=== PATIENT | female | born 1990 | race Caucasian/White ===

== ENCOUNTER → 2017-06-13 16:48 | Emergency (ER) | payer SELFPAY ==
[~2017-06-13 16:48] MED LIST: PPD test dose* 5 TU/0.1 ML TEST (*USE PPD ORDER SET*) ONE
== END | disposition home or self-care (01) ==
LOC: OHCORT 16:48
DX: Z11.1 Encounter for screening for respiratory tuberculosis (principal)

== ENCOUNTER 2017-06-25 18:36 | Emergency (ER) | payer SELFPAY ==
[2017-06-25 18:57] VITALS: BP 118/68
--- NOTE | 2017-06-25 19:22 | UC ---
UC General HPI - HPI Summary HPI Summary: pt is c/o sneezing, sore throat, cough and bodyaches as well as "ears are burning". she admits to fever. onset 1 day ago - History of Current Complaint Hx Obtained From: Patient Hx Last Menstrual Period: 06/17/17 Onset/Duration: Sudden Onset Timing: Constant Pain Intensity: 5 Aggravating: nothing Alleviating: nothing Associated Signs & Symptoms: Positive: Cough, Fever <Keiry Alarcon - Last Filed: 06/25/17 19:22> <Paty Villanueva - Last Filed: 06/25/17 19:30> - History of Current Complaint Chief Complaint: UCGeneralIllness Stated Complaint: FEVER/COUGH/SORE THROAT Time Seen by Provider: 06/25/17 18:57 - Allergy/Home Medications Allergies/Adverse Reactions: Allergies Allergy/AdvReac Type Severity Reaction Status Date / Time bee venom protein (honey bee) Allergy Anaphylatic Verified 06/25/17 18:54 Shock Home Medications: Home Medications Pheniramine/P-Eph/Acetaminophn [Theraflu Flu & Sore Throa] 1 precious PO ONCE [History Confirmed 06/25/17] PMH/Surg Hx/FS Hx/Imm Hx Previously Healthy: Yes - Surgical History Surgical History: Yes Surgery Procedure, Year, and Place: X 1 - Social History Occupation: Student Lives: With Family Alcohol Use: Rare Substance Use Type: None Smoking Status (MU): Light Every Day Tobacco Smoker Type: Cigarettes Amount Used/How Often: 5 cigs per day Length of Time of Smoking/Using Tobacco: 6 YRS - Immunization History Vaccination Up to Date: Yes <Keiry Alarcon - Last Filed: 06/25/17 19:22> Review of Systems Constitutional: Fever Skin: Negative Eyes: Negative ENT: Sore Throat Respiratory: Cough Cardiovascular: Negative Gastrointestinal: Negative Genitourinary: Negative Motor: Negative Neurovascular: Negative Musculoskeletal: Myalgia Neurological: Negative Psychological: Negative Is Patient Immunocompromised?: No All Other Systems Reviewed And Are Negative: Yes <Keiry Alarcon - Last Filed: 06/25/17 19:22> Physical Exam Triage Information Reviewed: Yes Appearance: Well-Appearing Vital Signs: Initial Vital Signs Temp 97.9 F 06/25/17 18:53 Pulse 111 06/25/17 18:53 Resp 16 06/25/17 18:53 BP 118/68 06/25/17 18:53 Pulse Ox 96 06/25/17 18:53 Vital Signs Reviewed: Yes Eyes: Positive: Conjunctiva Clear ENT: Positive: Pharynx normal, TMs normal. Negative: Nasal congestion, Nasal drainage Neck: Positive: Supple, Nontender, No Lymphadenopathy. Negative: Nuchal Rigidity Respiratory: Positive: Lungs clear, Normal breath sounds Cardiovascular: Positive: RRR, No Murmur. Negative: Tachycardia Abdomen Description: Positive: Nontender, No Organomegaly, Soft Bowel Sounds: Positive: Present Musculoskeletal: Positive: ROM Intact Neurological: Positive: Alert Psychological: Positive: Age Appropriate Behavior Skin Exam: Normal <Keiry Alarcon - Last Filed: 06/25/17 19:22> Vital Signs: Initial Vital Signs Temp 97.9 F 06/25/17 18:53 Pulse 111 06/25/17 18:53 Resp 16 06/25/17 18:53 BP 118/68 06/25/17 18:53 Pulse Ox 96 06/25/17 18:53 <Paty Villanueva - Last Filed: 06/25/17 19:30> Diagnostics - Laboratory Diagnostic Studies Completed/Ordered: Influenza B + <Keiry Alarcon - Last Filed: 06/25/17 19:22> Course/Dx - Course Course Of Treatment: tamiflu offered, pt declined. tx supportive. pt has seen dr love in past thus refer there. - Differential Dx - Multi-Symptom Provider Diagnoses: Influenza B <Keiry Alarcon - Last Filed: 06/25/17 19:22> Discharge <Keiry Alarcon - Last Filed: 06/25/17 19:22> <Paty Villanueva - Last Filed: 06/25/17 19:30> - Discharge Plan Condition: Stable Disposition: HOME Patient Education Materials: Influenza (ED) Forms: *School Release Referrals: Cyn Love MD [Medical Doctor] - 7 Days Attestation Statement User Type: Provider - I was available for consult. This patient was seen by the advanced practice provider. The patient was not presented to, seen by, or examined by me.-Ljj <Paty Villanueva - Last Filed: 06/25/17 19:30>
== END 2017-06-25 19:27 | disposition home or self-care (01) ==
LOC: UCCORT 18:36
DX: J10.1 Influenza due to other identified influenza virus with other respiratory manifestations (principal); F17.210 Nicotine dependence, cigarettes, uncomplicated
CPT/HCPCS: 87502; 99211; G0463

== ENCOUNTER 2017-09-26 17:22 | Emergency (ER) | payer MEDICAID ==
[2017-09-26 17:58] VITALS: BP 124/82
[2017-09-26] MEDS ORDERED: Ondansetron ODT TAB* 4 MG PO ONE (18:24)
[2017-09-26] MEDS ORDERED: Acetaminophen TAB* 325 MG PO ONE (18:24)
--- NOTE | 2017-09-26 18:24 | UC ---
General HPI - HPI Summary HPI Summary: history of acid reflux, uses TUMS on occasion. For 3 days, has had pain after eating with about 5 episodes of emesis over the past 3 days, last was after lunch today (andrew at [employer]). Appetite overall normal, has thought that she might be running a fever, but did not take her own temp. 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 Last stool was normal, 2 days ago, says voiding normally. Smokes, minimal alcohol, stopped caffeine several months ago. 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 Hx Last Menstrual Period: 09/09/17 Onset/Duration: Gradual Onset, Lasting Days - 3 Timing: Intermittent Episodes Lasting: - nausea post eating, lasts several hours. Onset Severity: Mild Current Severity: Moderate Pain Intensity: 5 Associated Signs & Symptoms: Positive: Abdominal Pain - diffuse - Allergy/Home Medications Allergies/Adverse Reactions: Allergies Allergy/AdvReac Type Severity Reaction Status Date / Time bee venom protein (honey bee) Allergy Anaphylatic Verified 06/25/17 18:54 Shock PMH/Surg Hx/FS Hx/Imm Hx Previously Healthy: Yes - recent fatigue, chronic back pain. - Surgical History Surgical History: Yes Surgery Procedure, Year, and Place: X 1 - Family History Known Family History: Positive: Other - mother had surgery for a type of ulcer. - Social History Occupation: Student Lives: With Family Alcohol Use: Occasionally Substance Use Type: None Smoking Status (MU): Light Every Day Tobacco Smoker Type: Cigarettes Amount Used/How Often: 5 cigs per day Length of Time of Smoking/Using Tobacco: since age 15 Have You Smoked in the Last Year: Yes - Immunization History Vaccination Up to Date: Yes Review of Systems Constitutional: Fatigue - went to ER several weeks ago with fatigue, sometimes feels foggy in her brain Gastrointestinal: Abdominal Pain, Vomiting Genitourinary: Other - has monthly cycles with implanon in place, bleeds for about a week. Musculoskeletal: Arthralgia - chronic back pain Is Patient Immunocompromised?: No All Other Systems Reviewed And Are Negative: Yes Physical Exam Triage Information Reviewed: Yes Appearance: Ill-Appearing - looks mildly unwell., Pain Distress - mild Vital Signs: Initial Vital Signs Temp 98.3 F 09/26/17 17:44 Pulse 95 09/26/17 17:44 Resp 16 09/26/17 17:44 BP 124/82 09/26/17 17:44 Pulse Ox 99 09/26/17 17:44 Eyes: Positive: Conjunctiva Clear ENT: Positive: Pharynx normal Neck: Positive: Supple, Nontender, No Lymphadenopathy Respiratory: Positive: Lungs clear, Normal breath sounds Cardiovascular: Positive: RRR, No Murmur Abdominal Exam: Other Abdomen Description: Positive: No Organomegaly, Soft. Negative: Distended, Guarding, Hernia @, Hepatomegaly Bowel Sounds: Positive: Present Musculoskeletal Exam: Normal Neurological: Positive: Alert, Muscle Tone Normal Skin Exam: Normal Course/Dx - Course Course Of Treatment: omeprazole for reflux; ondansetron for nausea x 1 dose. - Differential Dx - Multi-Symptom Provider Diagnoses: gastritis, likely viral, reflux. Discharge - Sign-Out/Discharge Documenting (check all that apply): Discharge/Admit/Transfer - Discharge Plan Condition: Stable Disposition: HOME Prescriptions: Omeprazole CAP* [Prilosec CAP* 20 MG] 20 mg PO DAILY #14 cap. Patient Education Materials: Gastritis (ED) Referrals: Carolyne Isabel PA [Primary Care Provider] - Additional Instructions: You have been given zofran (ondansetron) for nausea. Clear fluids for the remainder of the day, and take your first omeprazole tonight. If you feel improved in the morning, take omeprazole 20 to 30 minutes before breakfast. I suggest 2 to 3 days of easily digestible foods such as oatmeal, cooked vegetables, poached chicken, toast etc. Follow up with your primary care physician regarding fatigue. - Billing Disposition and Condition Condition: STABLE Disposition: Home
== END 2017-09-26 18:58 | disposition home or self-care (01) ==
LOC: UCCORT 17:22
DX: K29.70 Gastritis, unspecified, without bleeding (principal); K21.9 Gastro-esophageal reflux disease without esophagitis; F17.210 Nicotine dependence, cigarettes, uncomplicated
CPT/HCPCS: 99212; A9270-GY; G0463

== ENCOUNTER 2018-01-08 11:02 | Emergency (ER) | payer MEDICAID, OTHER ==
[2018-01-08 11:35] VITALS: BP 122/74
--- NOTE | 2018-01-08 12:00 | UC ---
General HPI - HPI Summary HPI Summary: Patient states "I might have an ear infection". She states that she thinks might have fluid in her ears and she notes some pain in both ears thus wants to ensure not an infection. With that she admits to having sore throat and headache. She is currently on an anti-inflammatory and amoxicillin for recent dental extractions. She has no associated fever. - History of Current Complaint Chief Complaint: UCEar Stated Complaint: EARS,SORE THROAT Time Seen by Provider: 01/08/18 11:29 Hx Obtained From: Patient Hx Last Menstrual Period: ~12/31/17 (Implanon) Onset/Duration: Gradual Onset Timing: Constant Pain Intensity: 8 Aggravating: Nothing Alleviating: nothing Associated Signs & Symptoms: Positive: Headache - Allergy/Home Medications Allergies/Adverse Reactions: Allergies Allergy/AdvReac Type Severity Reaction Status Date / Time bee venom protein (honey bee) Allergy Anaphylatic Verified 01/08/18 11:30 Shock Home Medications: Home Medications Amoxicillin PO (*) [-Amoxicillin 250 MG CAP*] 250 mg PO DAILY 01/08/18 [History Confirmed 01/08/18] Etonogestrel [Nexplanon] 68 mg IMPLANT ONCE 01/08/18 [History Confirmed 01/08/18 ] Lactobacillus Acidophilus [Freeze Dried Acidophilus] 1 cap PO TID 01/08/18 [ History Confirmed 01/08/18] Naproxen Sodium [Naproxen 220 mg] 220 mg PO Q12H 01/08/18 [History Confirmed ] PMH/Surg Hx/FS Hx/Imm Hx - Additional Past Medical History Additional PMH: Otitis media - Surgical History Surgical History: Yes Surgery Procedure, Year, and Place: , 2010, [place] - Family History Known Family History: Positive: Other - mother had surgery for a type of ulcer. - Social History Occupation: Unemployed Lives: With Family Alcohol Use: Occasionally Substance Use Type: None Smoking Status (MU): Light Every Day Tobacco Smoker Type: Cigarettes Amount Used/How Often: 1/4 PPD Length of Time of Smoking/Using Tobacco: Since Age 15 Have You Smoked in the Last Year: Yes - Immunization History Vaccination Up to Date: Yes Review of Systems Constitutional: Negative Skin: Negative Eyes: Negative ENT: Sore Throat, Ear Ache Respiratory: Negative Cardiovascular: Negative Gastrointestinal: Negative Genitourinary: Negative Motor: Negative Neurovascular: Negative Musculoskeletal: Negative Neurological: Headache Psychological: Negative Is Patient Immunocompromised?: No All Other Systems Reviewed And Are Negative: Yes Physical Exam Triage Information Reviewed: Yes Appearance: Well-Appearing Vital Signs: Initial Vital Signs Temp 97.8 F 01/08/18 11:29 Pulse 88 01/08/18 11:29 Resp 22 01/08/18 11:29 BP 122/74 01/08/18 11:29 Pulse Ox 99 01/08/18 11:29 Vital Signs Reviewed: Yes Eyes: Positive: Conjunctiva Clear ENT: Positive: Pharynx normal, TMs normal - Canals are clear. No pre-or postauricular adenopathy. No mastoid tenderness., Uvula midline. Negative: Nasal congestion, Nasal drainage Neck: Positive: Supple, No Lymphadenopathy Respiratory: Positive: Lungs clear, Normal breath sounds Cardiovascular: Positive: RRR, No Murmur Abdomen Description: Positive: Nontender, No Organomegaly, Soft Bowel Sounds: Positive: Present Musculoskeletal: Positive: ROM Intact Neurological: Positive: Alert Psychological: Positive: Age Appropriate Behavior Skin Exam: Normal Course/Dx - Course Course Of Treatment: No concern for otitis media, otitis externa or mastoiditis. No concern for peritonsillar abscess. No rapid strep screen done because patient is already on amoxicillin which would cover strep throat. Going to treat her for eustachian tube dysfunction with a nasal steroid and an oral decongestant. Close follow-up advised for recheck. Patient agrees to complete her antibiotic as direct by the dentist - Differential Dx - Multi-Symptom Provider Diagnoses: Eustachian tube dysfunction. Sore throat. Discharge - Sign-Out/Discharge Documenting (check all that apply): Patient Departure All imaging exams completed and their final reports reviewed: No Studies - Discharge Plan Condition: Stable Disposition: HOME Prescriptions: Fluticasone NASAL SPRAY 50MCG* [Flonase NASAL SPRAY 50MCG*] 2 spray BOTH NARES DAILY 14 Days #1 btl Pseudoephedrine TAB* [Sudafed TAB*] 30 mg PO TID PRN #1 box PRN Reason: Congestion Patient Education Materials: Pharyngitis (ED), Earache (ED) Referrals: Carolyne Isabel PA [Primary Care Provider] - 7 Days - Billing Disposition and Condition Condition: STABLE Disposition: Home
== END 2018-01-08 12:06 | disposition home or self-care (01) ==
LOC: UCCORT 11:02
DX: H69.90 Unspecified Eustachian tube disorder, unspecified ear (principal); F17.210 Nicotine dependence, cigarettes, uncomplicated; Z91.030 Bee allergy status
CPT/HCPCS: 99212; G0463

== ENCOUNTER 2019-04-13 05:55 | Inpatient (IN) | payer OTHER ==
[~2019-04-13 05:55] MED LIST changes: +Buffered Lidocaine 1% SYRIN* 1 ML/SYRINGE INTRADERM ONE; -PPD test dose* 5 TU/0.1 ML TEST (*USE PPD ORDER SET*) ONE; +ceFAZolin 2 GM PREMIX in ORs 2 GM/50 ML BAG IVPB SCH
--- OUTSIDE RECORDS SUMMARY | 2019-04-13 05:59 | XMS REPORT | Continuity of Care Document ---
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 [phone] Problems Active Problems Provider Date H/O: section Sean Carmen CNM Onset: 02/10/2019 Social History Type Date Description Comments Sex Unknown Cigarette Use Former Cigarette Smoker 1/3 to 1/2 ppd, quit with ETOH Use Does Not Drink Alcohol Recreational Drug Use Does Not Use Drugs FERN: 04/24/2019 Estimated Date of Based on 1st Ultrasound Delivery Allergies, Adverse Reactions, Alerts Description No Known Drug Allergies Medications Active Medications SIG Qnty Indications Ordering Date Provider Pseudoephedrine HCL 1 tablet every 4-6 30tabs Stacy Vences 03/17/2019 30mg hours as needed Lu CNM Tablets for congestion Valacyclovir HCL 2 tablets by mouth 4tabs Dawson Lopez, 02/26/2019 1gm twice daily for CNM Tablets one day Magnesium Citrate 1 tab by mouth 1-2 30tabs Therese Mercado, 01/28/2019 200mg hours before bed CNM Tablets Penicillin V Potassium Take one by mouth 20tabs Paty 01/08/2019 twice daily for 10 [place]ar[place], CNM 500mg Tablets days Dha 1 by mouth every Unknown 200mg day, ok to use Capsules 200-400mg dha Ventolin HFA 1-2 inhalations Unknown 108(90Base) every 4-6 hours, mcg/Act Aerosol as needed for wheezing, shortness of breath Immunizations CPT Code Status Date Vaccine Lot # [id number] Given 01/28/2019 Tetnus, Diptheria Toxoids And Acellular Pertussis, [id number] PT > 7Yrs Old [id number] Given 01/28/2019 Influenza Vaccine Quadrivalent Preser/Antibiotic [id number] Free Im Use Vital Signs Date Vital Result Comment 01/02/2019 12:52pm BP Systolic 112 mmHg BP Diastolic 62 mmHg Height 62.75 inches 5'2.75" Weight 185.00 lb BMI (Body Mass Index) 33.0 kg/m2 Last Menstrual Period 3836768 2 Parity 1 Results Test Acquired Date Facility Test Result H/L Range Note Laboratory test 03/23/2019 [facility] Group B Strep SEE RESULT 1, 2 [place] [address] Culture BELOW [phone] Screen Laboratory test 01/28/2019 [facility] Glucose 1 HR 132 mg/dL Normal 70-160 3 [place] [address] Post Prandial [phone] CBC With No 01/28/2019 [facility] White Blood 12.7 High 3.5- 10.8 [place] [address] Count 10^3/uL [phone] Red Blood Count 3.70 10^6/uL Normal 3.70-4.87 Hemoglobin 11.5 g/dL Low 12.0-16.0 Hematocrit 34 % Low 35-47 Mean Corpuscular Volume 91 fL Normal 80-97 Mean Corpuscular Hemoglobin 31 pg Normal 27-31 Mean Corpuscular HGB Conc 34 g/dL Normal 31-36 Red Cell Distribution Width 13 % Normal 10-15 Platelet Count 224 10^3/uL Normal 150-450 Mean Platelet Volume 9.8 fL Normal 7.4-10.4 Urine Drug 01/28/2019 [facility] Urine Amphetamine Negative ng/ mL 4 Comp 20 [place] [address] [phone] Urine Barbiturates Negative ng/mL 5 Urine Benzodiazepines Negative ng/mL 6 Urine Cocaine Negative ng/mL 7 Urine Phencyclidine Negative ng/mL Cutoff: 25 Urine Tetrahydrocannabinol Negative ng/mL Cutoff: 50 8 Creatinine, Urine 13.3 mg/dL Specific [place] 1.002 pH 7.5 Oxidants Negative 9 Adulterants Comment See Comment 10 Codeine, Ur Not Detected ng/mL Cutoff: 25 11 Eaqquso-3-flmj-glucuronide, Ur Not Detected ng/mL 12 Morphine, Ur Not Detected ng/mL Cutoff: 25 13 Kzknjsqf-5-skax-glucuronide, U Not Detected ng/mL 14 6-monoacetylmorphine, Ur Not Detected ng/mL Cutoff: 25 15 Hydrocodone, Ur Not Detected ng/mL Cutoff: 25 16 Norhydrocodone, Ur Not Detected ng/mL Cutoff: 25 17 Dihydrocodeine, Ur Not Detected ng/mL Cutoff: 25 18 Hydromorphone, Ur Not Detected ng/mL Cutoff: 25 19 Tiiuwbrpzmzsj8kufnqeizwakqqri Not Detected ng/mL 20 Oxycodone, Ur Not Detected ng/mL Cutoff: 25 21 Noroxycodone, Ur Not Detected ng/mL Cutoff: 25 22 Oxymorphone, Ur Not Detected ng/mL Cutoff: 25 23 Htqunqacozm-1-blew-glucuronide Not Detected ng/mL 24 Noroxymorphone, Ur Not Detected ng/mL Cutoff: 25 25 Fentanyl, Ur Not Detected ng/mL Cutoff: 2 26 Norfentanyl, Ur Not Detected ng/mL Cutoff: 2 27 Meperidine, Ur Not Detected ng/mL Cutoff: 25 28 Normeperidine, Ur Not Detected ng/mL Cutoff: 25 29 Naloxone, Ur Not Detected ng/mL Cutoff: 25 30 Xzybgwdl-1-xtcb-glucuronide, U Not Detected ng/mL 31 Methadone, Ur Not Detected ng/mL Cutoff: 25 32 Eddp, Ur Not Detected ng/mL Cutoff: 25 33 Propoxyphene, Ur Not Detected ng/mL Cutoff: 25 34 Norpropoxyphene, Ur Not Detected ng/mL Cutoff: 25 35 Tramadol, Ur Not Detected ng/mL Cutoff: 25 36 O-desmethyltramadol, Ur Not Detected ng/mL Cutoff: 25 37 Tapentadol, Ur Not Detected ng/mL Cutoff: 25 38 N-desmethyltapentadol, Ur Not Detected ng/mL Cutoff: 50 39 Kfaylzulrk-erdl-vdejpslgtrm, U Not Detected ng/mL 40 Buprenorphine, Ur Not Detected ng/mL Cutoff: 5 41 Norbuprenorphine, Ur Not Detected ng/mL Cutoff: 5 42 Norbuprenorphine glucuronide Not Detected ng/mL Cutoff: 20 43 Opioid Interpretation See Comment 44 PNL No 01/02/2019 [facility] Rubella Screen Immune Immune 45 [place] [address] [phone] Hemoglobin A1c 5.1 % Normal 4.0-5.6 46 Hepatitis B Surface Ag Nonreactive Nonreactive 47 Syphillis Igg W/Reflex RPR Negative Negative 48 CBC With No 01/02/2019 [facility] White Blood 11.6 10^3/uL High 3.5-10.8 [place] [address] Count [phone] Red Blood Count 3.72 10^6/uL Normal 3.70-4.87 Hemoglobin 11.4 g/dL Low 12.0-16.0 Hematocrit 34 % Low 35-47 Mean Corpuscular Volume 92 fL Normal 80-97 Mean Corpuscular Hemoglobin 31 pg Normal 27-31 Mean Corpuscular HGB Conc 33 g/dL Normal 31-36 Red Cell Distribution Width 13 % Normal 10-15 Platelet Count 216 10^3/uL Normal 150-450 Mean Platelet Volume 9.7 fL Normal 7.4-10.4 Type And Screen 01/02/2019 [facility] Patient [place] [address] [phone] Antibody Screen NEGATIVE Lead 01/02/2019 [facility] Lead,Venous, B < 1.0 g/dL 0.0- 4.9 49 [place] [address] [phone] Venous/Capillary Venous Submitting Laboratory Phone [phone] HIV 1&2 p24 01/02/2019 [facility] HIV 4th [place] [address] Generation [phone] Urine Culture 01/02/2019 [facility] Urine SEE RESULT [address] [place] [address] Culture BELOW Sensitivities [phone] [id number] 2 SEE RESULT BELOW Name: CHRISTINA HENDRICKS : [address]: Elizabet Chandra MD Acct: [id number] Unit: [id number] AGE: 28 Location: [facility] Re03/23/19 SEX: F Status: REG REF SPEC: [id number] BALA: 03/23/[address]: Elizabet Chandra MD REQ: [id number] RECD: 03/23/19 STATUS: COMP _ SOURCE: CER/VAG/RE SPDESC: ORDERED: Grp B Strp Scrn COMMENTS: [id number] QUERIES: Is Patient Penicillin Allergic? N Is patient penicillin allergic and/or sensitivities needed? N Provider Requisition # C77#[id number]_ Procedure Result Reported Site Group B Strep Culture Screen Final 03/25/19- 0906 ML Group B Strep Screen Negative * - [facility] . END OF REPORT DEPARTMENT OF PATHOLOGY, [address] [place] [address] Madhu Mcwilliams M.D. Director KATIE # [id number] REFERENCE VALUE Cutoff: 500 5 REFERENCE VALUE Cutoff: 200 6 REFERENCE VALUE Cutoff: 100 7 REFERENCE VALUE Cutoff: 150 8 ADDITIONAL INFORMATION This report is intended for use in clinical monitoring or management of patients. It is not intended for use in employment-related testing. Test Performed by: [facility] [address] [place] [id number] Adviser Sales: He Lockhart M.D. Ph.D.; KATIE# [id number] 9 REFERENCE VALUE Cutoff: 200 mg/L 10 RESULT: Suspect diluted specimen. 11 Tylenol 3 12 Metabolite of codeine REFERENCE VALUE Cutoff: 100 13 Paty Lemus, MS Contin; Also a minor metabolite (10%) of codeine and can be seen in low concentrations (<2,000 ng/mL) with poppy seed ingestion. 14 Metabolite of morphine REFERENCE VALUE Cutoff: 100 15 Metabolite of heroin 16 Lortab, [place], Vicodin; Also a very minor metabolite of codeine and impurity (<1%) of oxycodone. 17 Metabolite of hydrocodone 18 Metabolite of hydrocodone 19 Dilaudid, Exalgo; Also a metabolite of hydrocodone and a minor (<5%) metabolite of morphine. 20 Metabolite of hydromorphone REFERENCE VALUE Cutoff: 100 21 Endocet, Percocet, Oxycontin 22 Metabolite of oxycodone 23 Numorphan, Opana; Also a metabolite of oxycodone. 24 Metabolite of oxymorphone REFERENCE VALUE Cutoff: 100 25 Metabolite of oxymorphone 26 Actiq, Duragesic, Fentora 27 Metabolite of fentanyl 28 Demerol 29 Metabolite of meperidine 30 Narcan 31 Metabolite of naloxone REFERENCE VALUE Cutoff: 100 32 Dolophine 33 Metabolite of methadone 34 Darvon, Darvocet 35 Metabolite of propoxyphene 36 Tradol, Ultram, Ultracet 37 Metabolite of tramadol 38 Nucynta 39 Metabolite of tapentadol 40 Metabolite of tapentadol REFERENCE VALUE Cutoff: 100 41 Buprenex, Suboxone 42 Metabolite of buprenorphine 43 Metabolite of buprenorphine 44 No opioids were detected. The absence of expected drug(s) and/or drug metabolite(s) may indicate non-compliance, altered pharmacokinetics, inappropriate timing of specimen collection relative to drug administration, diluted/adulterated urine, or limitations of testing. ADDITIONAL INFORMATION This test was developed and its performance characteristics determined by [facility] in a manner consistent with CLIA requirements. This test has not been cleared or approved by the U.S. Food and Drug Administration. 45 [id number] 46 Therapeutic target for the treatment of diabetes mellitus patients is <7% HBA1C, and in selective patients <6.0%. Please refer to [place] [employer] diabetic care guidelines for further information. 47 [id number] 48 [id number] 49 ADDITIONAL INFORMATION Testing performed by Inductively Coupled Plasma-Mass Spectrometry (ICP-MS). This test was developed and its performance characteristics determined by [facility] in a manner consistent with CLIA requirements. This test has not been cleared or approved by the U.S. Food and Drug Administration. 50 Test Performed by: [facility] - [place] [address] [place] [address] Adviser Sales: He Lockhart M.D. Ph.D.; CLIA# [id number] 51 SEE RESULT BELOW Name: CHRISTINA HENDRICKS : [address]: Paty Jaimes CNM Acct: [id number] Unit: [id number] AGE: 28 Location: [facility] Re01/02/19 SEX: F Status: REG REF SPEC: [id number] BALA: 01/02/19-[address]: Paty Jaimes CNM REQ: [id number] RECD: 01/02/19 STATUS: COMP _ SOURCE: URINE SPDESC: ORDERED: Urine Culture COMMENTS: [id number] Urine Source: Random Procedure Result Reported Site Urine Culture Final 01/03/19- 1256 ML No growth of clinically significant organisms * ML - Main Lab . END OF REPORT DEPARTMENT OF PATHOLOGY, [address] [place] [address] Madhu Mcwilliams M.D. Director [facility] # [id number] Procedures Description No Information Available Medical Devices Description No Information Available Encounters Description No Information Available Assessments Date Code Description Provider 03/23/2019 Z34.83 Encounter for supervision of other normal Elizabet Chandra MD , third trimester 03/09/2019 O34.211 Maternal care for low transverse scar from Derrell Roque JR, DO previous delivery 02/23/2019 O34.211 Maternal care for low transverse scar from Yocasta Chery MD previous delivery 01/28/2019 Z36.9 Encounter for screening, Yocasta Chery MD unspecified 01/28/2019 Z36.9 Encounter for screening, Laboratory unspecified 01/28/2019 Z34.83 Encounter for supervision of other normal Therese Mercado CNM , third trimester 01/28/2019 Z23 Encounter for immunization Therese Mercado CNM 01/02/2019 Z34.82 Encounter for supervision of other normal Paty Jaimes CNM , second trimester Plan of Treatment Future Appointment(s):05/18/2019 1:30 pm - Derrell Roque JR, DO at [facility] 11:00 am - Paty Jaimes CNM at [facility]04/13/2019 11:00 am - Derrell Roque JR, DO at [place] 9423106/07/2018 10:45 am - Marilyn Burton MD at [facility] Functional Status Description No Information Available Mental Status Description No Information Available Referrals Description No Information Available
[2019-04-13] MEDS ORDERED: Lactated Ringers 1000 ML Bag* 1,000 ML IV SCH ×2 (06:00→10:00)
[2019-04-13] MEDS ORDERED: Sodium Citrate/Citric Acid* 15 ML UDC PO ONE (06:00)
[2019-04-13] MEDS ORDERED: Naloxone* 0.4 MG/ML 1 ML VIAL IV PRN ×2 (07:13→08:42)
[2019-04-13] MEDS ORDERED: Morphine PF AMP (0.5MG/ML)* 5 MG/10 ML AMP ONE (07:35)
[2019-04-13] MEDS ORDERED: OXYTOCIN* 10 UNITS/ML 1 ML VIAL ONE (08:22)
[2019-04-13] MEDS ORDERED: oxyCODONE/Acetamin 5/325 MG* TAB PO PRN ×2 (08:42→09:17)
[2019-04-13] MEDS ORDERED: Ondansetron INJ* 2 MG/ML VIAL IV PRN (08:42)
[2019-04-13] MEDS ORDERED: Lidocaine 2% PF* 10 ML AMP ONE (08:48)
[2019-04-13] MEDS ORDERED: Propofol* 10 MG/ML 20 ML BTL ONE (08:48)
[2019-04-13] MEDS ORDERED: Zolpidem TAB* 5 MG PO PRN (09:17)
[2019-04-13] MEDS ORDERED: Witch Hazel PAD* JAR TOPICAL PRN (09:17)
[2019-04-13] MEDS ORDERED: Dibucaine 1% 28.35 GM TUBE PR PRN (09:17)
[2019-04-13] MEDS ORDERED: Glycerin ADULT SUPP PR PRN (09:17)
[2019-04-13] MEDS ORDERED: fentaNYL* 50 MCG/ML 2 ML VIAL (100 MCG VIAL) ONE (09:37)
[2019-04-13] MEDS ORDERED: fentaNYL* 50 MCG/ML 2 ML VIAL (100 MCG VIAL) IV PRN ×2 (10:19→10:20)
[2019-04-13] MEDS: oxyCODONE/Acetamin 5/325 MG* TAB PO PRN ×3 (10:53→19:35)
[2019-04-13] MEDS: Ibuprofen TAB* 400 MG PO SCH ×2 (10:54→17:53)
[2019-04-13] MEDS: Docusate CAP* 100 MG PO SCH ×2 (14:53→19:35)
[2019-04-13] MEDS: Simethicone TAB* 80 MG TAB.CHEW PO SCH ×3 (14:53→19:35)
--- NOTE | 2019-04-13 21:14 | OP ---
OPERATIVE REPORT: DATE OF OPERATION: 04/13/19 DATE OF : [birth year] SURGEON: Derrell Roque, COORDINATOR HOTELS: Rahul Pendleton MD ANESTHESIA: Spinal. PRE-OP DIAGNOSIS: Single intrauterine at term, history of prior section. POST-OP DIAGNOSIS: Single intrauterine at term, history of prior section, delivered. OPERATIVE PROCEDURE: Repeat low transverse section via Pfannenstiel incision. ESTIMATED BLOOD LOSS: 600 mL. IV FLUIDS: 1600 mL. URINE OUTPUT: 200 mL. SPECIMEN: Placenta discarded. COMPLICATIONS: None. FINDINGS: Male , vertex position. Apgars 8 and 9, weight was 3492 g. Normal uterus, fallopian tubes, and ovaries with evidence of mild endometriosis. DESCRIPTION OF PROCEDURE: The patient presented to Labor and Delivery for routine scheduled elective repeat at term. The patient understood that the risks of section include, but are not limited to visceral or vascular injury, infection, blood loss, need for transfusion, prolonged hospitalization, and reoperation. The patient stated understanding and desired to proceed. All questions were answered. The patient was taken to the operating room where spinal anesthesia was found to be adequate. 2 g of Ancef was given for infection prophylaxis. She was prepped and draped in the dorsal supine position with a leftward tilt. A Pfannenstiel skin incision was made with the scalpel and this incision was carried down to the fascia sharply. The fascia was incised and extended laterally. The inferior aspect of the fascia was grasped with Andre clamps. The underlying rectus muscle and pyramidalis was dissected off sharply with Land scissors. In a similar fashion, the superior aspect of the fascia was elevated with Andre and the rectus muscle was dissected off. The rectus was in the midline down to the level of the pubic symphysis. Preperitoneal fatty tissue was bluntly dissected to expose the peritoneum. The peritoneum was entered bluntly. The peritoneal incision was extended superiorly and inferiorly with traction, countertraction between the surgeon and the registered nurse surgical services. The bladder blade was inserted and vesicouterine peritoneum identified. Intraabdominal survey revealed scant clear peritoneal fluid and thinned out lower uterine segment. The vesicouterine peritoneum was opened with scissors and the bladder flap was developed. Bladder blade was repositioned to keep the bladder out of the operative field. The lower uterine segment was incised with a scalpel. The amniotic sac ruptured spontaneously and clear fluid was noted. The uterine incision was extended bluntly in a cephalocaudad fashion. The fetus was in cephalic presentation. The head was elevated out of the pelvis with special attention paid to avoid using the uterine incision as a fulcrum. Gentle fundal pressure was applied once the head was brought into the incision. The infant was delivered with no difficulty. The mouth and nose were suctioned with a bulb. The cord was clamped and cut. The was handed off to the auto design checker. IV oxytocin was initiated to facilitate uterine contractions. The placenta was delivered intact with manual massage of the uterine fundus. The uterus was then exteriorized. The inside of the uterus was gently wiped with a lap sponge to assure complete removal of placental membranes. The uterine incision was closed with 0-Vicryl suture in a running locked fashion. A single dose of 0.2 mg IM Methergine was administered to help with mild uterine atony with good effect. A repeat imbricating suture of 0- Vicryl was then placed. The ovaries and tubes were found to be normal. There was evidence of mild endometriosis on the posterior aspect of the uterus. The uterus, tubes, and ovaries were then returned to the abdominal cavity. The blood clots and fluid were wiped out of the abdomen and pelvis with moist laparotomy sponges. The uterine incision was reinspected and good hemostasis was noted. The peritoneum was closed with 3-0 Vicryl suture in a continuous running fashion. The fascial layer was closed with 0 Vicryl suture. The skin was closed with 4-0 Monocryl in a subcuticular fashion. The patient tolerated the procedure well. All the counts were correct x2. The patient was taken to the recovery room in a stable condition. I was present for the entire procedure. Rafael Roque DO [place] [id number]/[facility] #: [id number] [facility]
[2019-04-13] MEDS: Acetaminophen TAB* 325 MG PO PRN (22:02)
[2019-04-14] MEDS: Ibuprofen TAB* 400 MG PO SCH (00:07)
[2019-04-14] MEDS: oxyCODONE/Acetamin 5/325 MG* TAB PO PRN ×2 (00:07→04:08)
[2019-04-14 06:21] LABS: ABS Basophils 0.1 10^3/ul (0-0.2); ABS Eosinophils 0.2 10^3/ul (0-0.6); ABS Lymphocytes 2.6 10^3/ul (1.0-4.8); ABS Monocytes 1.4 10^3/ul (0-0.8); ABS Neutrophils 13.3 10^3/ul (1.5-7.7); Hematocrit 33 % (35-47); Hemoglobin 10.8 g/dL (12.0-16.0); Lymphocyte % 14.9 %; Mean Corpuscular HGB Conc 33 g/dL (31-36); Mean Corpuscular Hemoglobin 30 pg (27-31); Mean Corpuscular Volume 91 fL (80-97); Mean Platelet Volume 9.7 fL (7.4-10.4); Platelet Count 178 10^3/uL (150-450); Red Blood Count 3.68 10^6 /uL (3.70-4.87); Red Cell Distribution Width 13 % (10-15); White Blood Count 17.6 10^3/uL (3.5-10.8)
[2019-04-14] MEDS: Docusate CAP* 100 MG PO SCH ×3 (08:20→20:58)
[2019-04-14] MEDS: Simethicone TAB* 80 MG TAB.CHEW PO SCH ×4 (08:20→20:58)
[2019-04-14] MEDS: Ibuprofen TAB* 600 MG PO PRN ×3 (08:22→20:58)
[2019-04-14] MEDS ORDERED: Ferrous Gluconate TAB* 324 MG TAB PO SCH (09:00)
[2019-04-14] MEDS: Acetaminophen TAB* 325 MG PO PRN ×3 (11:37→20:16)
[2019-04-15] MEDS: Acetaminophen TAB* 325 MG PO PRN ×3 (03:16→12:24)
[2019-04-15] MEDS: Ibuprofen TAB* 600 MG PO PRN ×2 (03:17→09:34)
[2019-04-15 07:49] VITALS: BP 119/68
[2019-04-15] MEDS: Simethicone TAB* 80 MG TAB.CHEW PO SCH ×2 (08:01→12:24)
[2019-04-15] MEDS: Docusate CAP* 100 MG PO SCH (08:01)
== END 2019-04-15 14:03 | disposition home or self-care (01) | DRG 540 ==
LOC: MCHOB 05:55
PROVIDERS: ADMIT Obstetrics & Gynecology; ATTEND Obstetrics & Gynecology
PROC: 10D00Z1 Extraction of Products of Conception, Low, Open Approach (ICD-10-PCS; principal; 2019-04-13 07:45)
DX: O34.211 Maternal care for low transverse scar from previous cesarean delivery (principal); O98.42 Viral hepatitis complicating childbirth; O99.344 Other mental disorders complicating childbirth; F41.8 Other specified anxiety disorders; B19.20 Unspecified viral hepatitis C without hepatic coma; J45.909 Unspecified asthma, uncomplicated; O99.52 Diseases of the respiratory system complicating childbirth; Z3A.38 38 weeks gestation of pregnancy; Z37.0 Single live birth; Z87.891 Personal history of nicotine dependence
CPT/HCPCS: 36415; 85025; A9270-GY; J0690; J2001; J2590; J2704; J3010